=== PATIENT | male | born 1995 | race Two or more races ===

== ENCOUNTER 2019-12-29 18:55 | Emergency (ER) | payer MEDICAID ==
[~2019-12-29] VITALS: Ht 175.3 cm; Wt 90.7 kg
[2019-12-29 20:10] VITALS: BP 130/65
[2019-12-29] MEDS ORDERED: ACETAMINOPHEN 500 MG TAB PO ONE (20:30)
== END 2019-12-29 20:42 | disposition home or self-care (01) ==
LOC: ER 18:55
DX: S97.81XA Crushing injury of right foot, initial encounter (principal); W23.0XXA Caught, crushed, jammed, or pinched between moving objects, initial encounter; Y93.89 Activity, other specified; Y92.89 Other specified places as the place of occurrence of the external cause; Y99.8 Other external cause status
CPT/HCPCS: 73630